=== PATIENT | male | born 1945 | race Two or more races ===

== ENCOUNTER → 2020-10-15 | Outpatient (CLI) | payer MEDICARE | END | disposition home or self-care (01) | LOC: STAR 13:09 | PROVIDERS: ATTEND Anesthesiology | DX: Z01.818 Encounter for other preprocedural examination (principal); Z01.812 Encounter for preprocedural laboratory examination; Z01.89 Encounter for other specified special examinations; R79.1 Abnormal coagulation profile | CPT/HCPCS: 93005 ==

== ENCOUNTER → 2020-11-12 | Outpatient (CLI) | payer MEDICARE | END | disposition home or self-care (01) | LOC: RAD 16:14 | PROVIDERS: ATTEND Chiropractor | DX: S33.5XXA Sprain of ligaments of lumbar spine, initial encounter (principal); M48.061 Spinal stenosis, lumbar region without neurogenic claudication; M41.86 Other forms of scoliosis, lumbar region; X58.XXXA Exposure to other specified factors, initial encounter; Y93.89 Activity, other specified; Y92.89 Other specified places as the place of occurrence of the external cause; Y99.8 Other external cause status | CPT/HCPCS: 72100; 72170 ==

== ENCOUNTER → 2021-02-25 | Outpatient (CLI) | payer MEDICARE ==
[~2021-02-25] MED LIST: LIDOCAINE 1%, 10ML ONE
== END | disposition home or self-care (01) ==
LOC: RAD 12:10
PROVIDERS: ATTEND Internal Medicine Cardiovascular Disease
DX: E04.1 Nontoxic single thyroid nodule (principal)
CPT/HCPCS: 10005; 88173